=== PATIENT | male | born 1940 | race Caucasian/White ===

== ENCOUNTER → 2025-02-09 | Outpatient (CLI) | payer OTHER, SELFPAY ==
--- NOTE | 2025-02-09 09:05 | XR_ITS ---
Examination: Esophagram standard Upright PA chest single view Upright soft tissue lateral neck single view 28 spot fluoroscopic films of the esophagus Fluoroscopy Exam date and time: February 09, 2025 0925 hours INDICATIONS: Difficulty swallowing 6 months TECHNIQUE AND FINDINGS: Upright PA chest multiple nodules in the right mid and lower lung zone Normal heart size Mild hyperexpansion Soft tissue lateral neck normal epiglottis, advanced degenerative disc disease C4-C5, C5-C6, C6-C7 Patient swallowed thin barium with 28 spot fluoroscopic films of the esophagus Fluoroscopy 0.17 minutes Numerous secondary and tertiary esophageal contractions Moderate continuous gastroesophageal reflux No constricting esophageal lesion No esophageal ulcerations Small sliding hernia No stricture the gastroesophageal junction IMPRESSION: Significant esophageal dysmotility Moderate continuous gastroesophageal reflux
== END | disposition home or self-care (01) ==
DX: K21.9 Gastro-esophageal reflux disease without esophagitis (principal); K22.89 Other specified disease of esophagus
CPT/HCPCS: 74220; A4699